=== PATIENT | male | born 1995 | race Caucasian/White ===

== ENCOUNTER 2017-06-17 16:42 | Emergency (ER) | payer MEDICAID ==
[2017-06-17 17:12] VITALS: BP 143/83
[2017-06-17] MEDS ORDERED: IBUPROFEN 800 MG TABLET PO ONE (17:59)
--- NOTE | 2017-06-17 18:00 | ER Document Report ---
HPI - HPI Patient complains to provider of: Cough, chest pain, sore throat Onset: Other - 4 days Onset/Duration: Persistent Quality of pain: Achy Pain Level: 5 Context: Patient presents complaining of occasionally productive cough for the past 4 days with chest pain that is present with coughing only. Patient complains of sore throat For the past 4 days as well. Patient denies any fever. Patient does complain of right lower back pain for the past month but denies any injury. Patient denies any urinary symptoms. Patient denies any radiculopathy or paresthesia. Associated Symptoms: Chest pain, Productive cough, Sore throat. denies: Earache , Fever, Nausea, Vomiting Exacerbated by: Coughing Relieved by: Remaining still Similar symptoms previously: No Recently seen / treated by doctor: No - ROS ROS below otherwise negative: Yes Systems Reviewed and Negative: Yes All other systems reviewed and negative - CONSTITUTIONAL Constitutional: DENIES: Fever, Chills - EENT EENT: REPORTS: Sore Throat - NEURO Neurology: DENIES: Headache - CARDIOVASCULAR Cardiovascular: REPORTS: Chest pain - RESPIRATORY Respiratory: REPORTS: Coughing. DENIES: Trouble Breathing - GASTROINTESTINAL Gastrointestinal: DENIES: Abdominal Pain, Nausea, Patient vomiting, Diarrhea - URINARY Urinary: DENIES: Dysuria, Urgency, Frequency - REPRODUCTIVE Reproductive: DENIES: : - MUSCULOSKELETAL Musculoskeletal: REPORTS: Back Pain. DENIES: Extremity pain - DERM Skin Color: Normal, [place] Skin Problems: None Past Medical History - General Information source: Patient - Social History Smoking Status: Current Every Day Smoker Frequency of alcohol use: None Drug Abuse: None Occupation: Recycling Family History: Arthritis, Hypertension, Malignancy Patient has suicidal ideation: No Patient has homicidal ideation: No Renal/ Medical History: Denies: Hx Peritoneal Dialysis Musculoskeltal Medical History: Reports Hx Musculoskeletal Deformity, Reports Hx Musculoskeletal Trauma Traumatic Medical History: Reports: Hx Pneumothorax, Hx Traumatic Brain Injury Past Surgical History: Reports: Hx Neurologic Surgery - Surgery after TBI - Immunizations Immunizations up to date: Yes Hx Diphtheria, Pertussis, Tetanus Vaccination: Yes Vertical Provider Document - CONSTITUTIONAL Agree With Documented VS: Yes Exam Limitations: No Limitations General Appearance: WD/WN, No Apparent Distress - INFECTION CONTROL TRAVEL OUTSIDE OF THE [place] IN LAST 30 DAYS: No - HEENT HEENT: Atraumatic, Normocephalic, Pharyngeal Tenderness, Pharyngeal Erythema. negative: Pharyngeal Exudate - NECK Neck: Normal Inspection, Supple. negative: Lymphadenopathy-Left, Lymphadenopathy-Right - RESPIRATORY Respiratory: Breath Sounds Normal, No Respiratory Distress, Chest Non-Tender. negative: Rales, Rhonchi, Wheezing O2 Sat by Pulse Oximetry: 99 - CARDIOVASCULAR Cardiovascular: Regular Rate, Regular Rhythm, No Murmur - BACK Back: CVA Tenderness-Right. negative: CVA Tenderness-Left - MUSCULOSKELETAL/EXTREMETIES Musculoskeletal/Extremeties: ERVIN LEWIS - NEURO Level of Consciousness: Awake, Alert, Appropriate Motor/Sensory: No Motor Deficit - DERM Integumentary: Warm, Dry Course - Re-evaluation Re-evalutation: 06/17/17 19:02 The patient has been informed that they may have pre-hypertension or hypertension based on a blood pressure reading in the emergency department. I recommend that patient call the primary care provider listed on their discharge instructions or a physician of their choice by this week to arrange follow-up for further evaluation of possible pre-hypertension or hypertension. The patient has atypical chest pain as the patient's chest pain is not suggestive of pulmonary embolus, cardiac ischemia, aortic dissection, or other serious etiology. Given the extremely low risk of these diagnoses for the test in evaluation for these possibilities does not appear to be indicated at this time. Patient has been instructed to return if the symptoms worsen or change in any way. - Vital Signs Vital signs: Temp Pulse Resp BP Pulse Ox 99.3 F 88 18 143/83 H 99 06/17/17 17:08 06/17/17 17:08 06/17/17 17:08 06/17/17 17:08 06/17/17 17:08 - Laboratory Laboratory results interpreted by me: 06/17/17 18:59 Labs- Entire Visit 06/17/17 06/17/17 18:18 18:18 Urine Color YELLOW Urine Appearance CLEAR Urine pH 5.0 Ur Specific [place] 1.026 Urine Protein NEGATIVE Urine Glucose (UA) NEGATIVE Urine Ketones NEGATIVE Urine Blood NEGATIVE Urine Nitrite NEGATIVE Urine Bilirubin NEGATIVE Urine Urobilinogen NEGATIVE Ur Leukocyte Esterase NEGATIVE Urine WBC (Auto) 2 Urine RBC (Auto) 1 Squamous Epi Cells Auto <1 Urine Mucus (Auto) RARE Urine Ascorbic Acid 20 H Group A Strep Rapid NEGATIVE - Diagnostic Test Radiology reviewed: Reports reviewed - EKG Interpretation by Me EKG shows normal: Sinus rhythm Rate: Normal Discharge - Discharge Clinical Impression: Elevated blood pressure reading, Sore throat Upper respiratory infection Qualifiers: URI type: unspecified URI Qualified Code(s): J06.9 - Acute upper respiratory infection, unspecified Low back pain Qualifiers: Chronicity: acute Back pain laterality: right Sciatica presence: without sciatica Qualified Code(s): M54.5 - Low back pain Condition: Stable Disposition: HOME, SELF-CARE Instructions: Low Back Pain ([facility]), Sore Throat ([facility]), Upper Respiratory Illness ([facility]) Additional Instructions: Return immediately for any new or worsening symptoms Followup with your primary care provider, call tomorrow to make a followup appointment Throat culture is pending, we will call if you need any different treatment Prescriptions: Cyclobenzaprine HCl [Flexeril 10 Mg Tablet] 10 mg PO TID #15 tablet Naproxen [Naprosyn 250 Nmg Tablet] 1 tab PO BID #14 tablet Forms: Elevated Blood Pressure, Return to Work Referrals: [facility] [Provider Group] - Follow up tomorrow
--- NOTE | 2017-06-17 18:32 | RADIOLOGY REPORT (SQ) ---
EXAM DESCRIPTION: CHEST PA/LAT COMPLETED DATE/TIME: 06/17/2017 6:18 pm REASON FOR STUDY: cough, cp COMPARISON: None. EXAM PARAMETERS: NUMBER OF VIEWS: two views TECHNIQUE: Digital Frontal and Lateral radiographic views of the chest acquired. RADIATION DOSE: NA LIMITATIONS: none FINDINGS: LUNGS AND PLEURA: No opacities, masses or pneumothorax. No pleural effusion. MEDIASTINUM AND HILAR STRUCTURES: No masses or contour abnormalities. HEART AND VASCULAR STRUCTURES: Heart normal size. No evidence for failure. BONES: No acute findings. HARDWARE: None in the chest. OTHER: No other significant finding. IMPRESSION: NO SIGNIFICANT RADIOGRAPHIC FINDING IN THE CHEST. TECHNICAL DOCUMENTATION: JOB ID: [id number] [employer]- All Rights Reserved
[2017-06-17 18:45] LABS: APPEARANCE,URINE CLEAR; BILIRUBIN,URINE NEGATIVE (NEGATIVE); GLUCOSE, URINE NEGATIVE (NEGATIVE); KETONES,URINE NEGATIVE (NEGATIVE); LEUKOCYTE ESTERASE,URINE NEGATIVE (NEGATIVE); NITRITE,URINE NEGATIVE (NEGATIVE); PROTEIN,URINE NEGATIVE (NEGATIVE); URINE SPECIFIC GRAVITY 1.026; UROBILINOGEN,URINE NEGATIVE mg/dL (<2.0)
--- NOTE | 2017-06-17 19:12 | EKG REPORT ---
SEVERITY:- OTHERWISE NORMAL ECG - SINUS RHYTHM BORDERLINE LEFT AXIS DEVIATION : Confirmed by: Edda Horn 17-Jun-2017 19:11:51
== END 2017-06-17 19:16 | disposition home or self-care (01) ==
LOC: ER 16:42
DX: J02.9 Acute pharyngitis, unspecified (principal); R07.9 Chest pain, unspecified; J06.9 Acute upper respiratory infection, unspecified; R03.0 Elevated blood-pressure reading, without diagnosis of hypertension; M54.5 Low back pain; F17.200 Nicotine dependence, unspecified, uncomplicated; Z87.820 Personal history of traumatic brain injury
CPT/HCPCS: 93005; 99283; 87070; 87880; 81001; 71020; 93010; J3490

== ENCOUNTER 2017-07-29 16:10 | Emergency (ER) | payer SELFPAY ==
--- NOTE | 2017-07-29 18:39 | ER Document Report ---
ED Medical Screen (RME) - General Chief Complaint: Abdominal Pain Stated Complaint: ABDOMINAL PAIN Time Seen by Provider: 07/29/17 18:35 Mode of Arrival: Ambulatory Information source: Patient Notes: pt presents with c/o sharp pain with cough/sit up for the past 5 days. Jono f/v /d. Increased BM, normal formed, just increased. Denies trauma. Denies PMH. Born with hernias. No obvious bulge. declines tylenol. History of TBI. TRAVEL OUTSIDE OF THE [place] IN LAST 30 DAYS: No - Related Data Allergies/Adverse Reactions: amoxicillin [Amoxicillin] Allergy (Verified 07/29/17 16:11) Penicillins Allergy (Verified 07/29/17 16:11) Past Medical History Renal/ Medical History: Denies: Hx Peritoneal Dialysis Musculoskeltal Medical History: Reports Hx Musculoskeletal Deformity, Reports Hx Musculoskeletal Trauma Traumatic Medical History: Reports: Hx Pneumothorax, Hx Traumatic Brain Injury Past Surgical History: Reports: Hx Neurologic Surgery - Surgery after TBI - Immunizations Immunizations up to date: Yes Hx Diphtheria, Pertussis, Tetanus Vaccination: Yes Physical Exam - Vital signs Vitals: Temp Pulse Resp BP Pulse Ox 99.6 F 93 17 125/76 100 07/29/17 16:34 07/29/17 16:34 07/29/17 16:34 07/29/17 16:34 07/29/17 16:34 Course - Vital Signs Vital signs: Temp Pulse Resp BP Pulse Ox 99.6 F 93 17 125/76 100 07/29/17 16:34 07/29/17 16:34 07/29/17 16:34 07/29/17 16:34 07/29/17 16:34
[2017-07-29 19:12] LABS: ABSOLUTE BASOPHILS # (AUTO) 0.1 10^3/uL (0.0-0.2); ABSOLUTE EOSINOPHILS # (AUTO) 0.4 10^3/uL (0.0-0.6); ABSOLUTE LYMPHOCYTES (AUTO) 3.4 10^3/uL (0.5-4.7); ABSOLUTE NEUT (AUTO) 8.2 10^3/uL (1.7-8.2); BASOPHILS % (AUTO) 0.6 % (0-2); EOSINOPHILS % (AUTO) 2.8 % (0-6); HEMATOCRIT 43.7 % (37.9-51.0); HEMOGLOBIN 15.3 g/dL (13.5-17.0); HGB HCT DIFFERENCE 2.2; LYMPHOCYTES % (AUTO) 25.9 % (13-45); MEAN CORPUSCULAR HEMOGLOBIN 29.3 pg (27.0-33.4); MEAN CORPUSCULAR VOLUME 84 fl (80-97); RED BLOOD COUNT 5.21 10^6/uL (4.35-5.55); RED CELL DISTRIBUTION WIDTH 13.1 % (11.5-14.0); SEGMENTED NEUTROPHILS % (AUTO) 62.7 % (42-78)
[2017-07-29 19:35] LABS: ALANINE AMINOTRANSFERASE 40 U/L (21-72); ALBUMIN 4.8 g/dL (3.5-5.0); ALKALINE PHOSPHATASE 74 U/L (38-126); ANION GAP 13 (5-19); ASPARTATE AMINO TRANSFERASE 22 U/L (17-59); BILIRUBIN,DIRECT 0.3 mg/dL (0.0-0.4); BILIRUBIN,TOTAL 0.5 mg/dL (0.2-1.3); BLOOD UREA NITROGEN 9 mg/dL (7-20); CALCIUM 9.8 mg/dL (8.4-10.2); CARBON DIOXIDE 30 mmol/L (22-30); CHLORIDE 98 mmol/L (98-107); GLUCOSE 77 mg/dL (75-110); POTASSIUM 4.1 mmol/L (3.6-5.0); SODIUM 140.5 mmol/L (137-145); TOTAL PROTEIN 7.5 g/dL (6.3-8.2)
--- NOTE | 2017-07-29 21:45 | RADIOLOGY REPORT (SQ) ---
EXAM DESCRIPTION: U/S ABDOMEN COMPLETE W/O DOP COMPLETED DATE/TIME: 07/29/2017 9:26 pm REASON FOR STUDY: abd pain, worries about hernia on LLQ COMPARISON: None. TECHNIQUE: Dynamic and static grayscale images acquired of the abdomen and recorded on PACS. Noelleo meaghan selected color Doppler and spectral images recorded. LIMITATIONS: Study is limited due to overlying bowel gas. FINDINGS: PANCREAS: Pancreas could not be visualized due to overlying bowel gas. LIVER: No masses. Echotexture normal. LIVER VASCULATURE: Normal directional flow of the main portal vein and hepatic veins. GALLBLADDER: No stones. Normal wall thickness. No pericholecystic fluid. ULTRASOUND-DETECTED TAYLOR'S SIGN: Negative. INTRAHEPATIC DUCTS AND COMMON DUCT: CBD and intrahepatic ducts normal caliber. No filling defects. INFERIOR VENA CAVA: Normal flow. AORTA: The abdominal aorta was incompletely visualized due to overlying bowel gas. RIGHT KIDNEY: 11.5 cm in length. Normal echogenicity. No solid or suspicious masses. No hydron ephrosis. No calcifications. LEFT KIDNEY: 12.3 cm in length. Normal echogenicity. No solid or suspicious masses. No hydrone phrosis. No calcifications. SPLEEN: Normal size. No solid masses. PERITONEAL AND PLEURAL SPACES: No ascites or effusions. OTHER: No other significant finding. IMPRESSION: Somewhat limited study as noted above. No significant intra-abdominal abnormalities jill kam identified. TECHNICAL DOCUMENTATION: JOB ID: [id number] [employer]- All Rights Reserved
--- NOTE | 2017-07-29 23:33 | ER Document Report ---
ED General - General Chief Complaint: Abdominal Pain Stated Complaint: ABDOMINAL PAIN Time Seen by Provider: 07/29/17 18:35 Mode of Arrival: Ambulatory Notes: Patient is a 21-year-old male presents with complaint of abdominal pain and left lower quadrant. Patient says that he has history of hernias persistent hernias were when he was child. Unsure if ever had surgery for this. She denies any vomiting or diarrhea. No fevers. Says pain is worse when he sits up or when he coughs. No other complaints at this time. Patient denies testicular pain. TRAVEL OUTSIDE OF THE [place] IN LAST 30 DAYS: No - Related Data Allergies/Adverse Reactions: amoxicillin [Amoxicillin] Allergy (Verified 07/29/17 18:40) Penicillins Allergy (Verified 07/29/17 18:40) Home Medications: Current Home Medications No Home Medications 07/29/17 [History] Past Medical History - General Information source: Patient - Social History Smoking Status: Never Smoker Chew tobacco use (# tins/day): No Frequency of alcohol use: None Drug Abuse: None Family History: Arthritis, Hypertension, Malignancy Patient has suicidal ideation: No Patient has homicidal ideation: No Renal/ Medical History: Denies: Hx Peritoneal Dialysis Musculoskeltal Medical History: Reports Hx Musculoskeletal Deformity, Reports Hx Musculoskeletal Trauma Traumatic Medical History: Reports: Hx Pneumothorax, Hx Traumatic Brain Injury Past Surgical History: Reports: Hx Neurologic Surgery - Surgery after TBI - Immunizations Immunizations up to date: Yes Hx Diphtheria, Pertussis, Tetanus Vaccination: Yes Review of Systems - Review of Systems Notes: My Normal Review Basic REVIEW OF SYSTEMS: CONSTITUTIONAL : Denies fever, chills, or sweats. Denies recent illness. EENT: Denies eye, ear, throat, or mouth pain or symptoms. Denies nasal or sinus congestion. RESPIRATORY: Denies cough, cold, or chest congestion. Denies shortness of breath, difficulty breathing, or wheezing. GASTROINTESTINAL: Left lower quadrant abdominal pain. Denies nausea, vomiting, or diarrhea. MUSCULOSKELETAL: Denies neck or back pain or joint pain or swelling. SKIN: Denies rash or skin lesions. NEUROLOGICAL: Denies altered mental status or loss of consciousness. Denies headache. Denies weakness or paralysis or loss of use of either side. Denies problems with gait or speech. Denies sensory or motor loss. ALL OTHER SYSTEMS REVIEWED AND NEGATIVE. Physical Exam - Vital signs Vitals: Temp Pulse Resp BP Pulse Ox 99.6 F 93 17 125/76 100 07/29/17 16:34 07/29/17 16:34 07/29/17 16:34 07/29/17 16:34 07/29/17 16:34 - Notes Notes: General Appearance: Well nourished, alert, cooperative, no acute distress, no obvious discomfort. Appearing. Vitals: reviewed, See vital signs table. Head: no swelling or tenderness to the head Eyes: PERRL, EOMI, Conjuctiva clear Mouth: No decreasd moisture Lungs: No wheezing, No rales, No rhonci, No accessory muscle use, good air exchange bilaterally. Heart: Normal rate, Regular rythm, No murmur, no rub Abdomen: Normal BS, soft, No rigidity, left lower quadrant abdominal tenderness to palpation., No guarding, no rebound Genital: No redness or swelling to the genitalia. No pain to palpation of genitalia. Extremities: strength 5/5 in all extremities, good pulses in all extremities, no swelling or tenderness in the extremities, no edema. Skin: warm, dry, appropriate color, no rash Neuro: speech clear, oriented x 3, normal affect, responds appropriately to questions. Course - Re-evaluation Re-evalutation: 07/29/17 23:47 Patient does not want away longer. CT scan results still pending. I informed him I will call him with the CT scan results. Patient looks well. I looked over the CT scan myself and I do not see an obvious hernia or signs of incarcerated hernia and his exam is benign. Patient again will not waiting longer therefore I done his phone number, . I will call him with his results. 07/30/17 06:40 CBC was negative. Is well-appearing. Patient did leave. I have tried to attempt to call him but he has not picked up the phone. I will try again to call him to make more that his CT scan was negative. When he left I informed him to return to ER immediately if he has worsening pain or feels unwell. Patient agrees with plan will be discharged home. - Vital Signs Vital signs: Temp Pulse Resp BP Pulse Ox 99.6 F 74 20 136/72 H 98 07/29/17 16:34 07/29/17 23:54 07/29/17 23:54 07/29/17 23:54 07/29/17 23:54 - Laboratory Result Diagrams: 07/29/17 18:57 07/29/17 18:57 Laboratory results interpreted by me: 07/29/17 18:57 WBC 13.0 H Discharge - Discharge Clinical Impression: Abdominal pain Qualifiers: Abdominal location: left lower quadrant Qualified Code(s): R10.32 - Left lower quadrant pain Condition: Good Disposition: HOME, SELF-CARE Additional Instructions: ABDOMINAL PAIN: There are many causes of abdominal pain. Pain can mean a serious problem requiring surgery (such as appendicitis). It can also be an innocent problem that goes away on its own (such as a viral infection). Often, time must pass to determine the cause of pain. The physician does not feel that hospitalization is necessary, at present. Things may change within the next 24 hours. Call the doctor or come back for re- examination if any problems occur, such as: (1) Pain that becomes more severe, steady, or becomes concentrated in one specific area. Also, pain that is more severe with movement or coughing. (2) Vomiting that persists or becomes more frequent. (3) Blood in the vomitus, urine, or bowel movements. Blood in the stool may have a tarry or black appearance. (4) Shaking chills or fever greater than 100 degrees F. (5) The abdomen becomes more distended or swollen. (6) Bowel movements cease. (7) Failure to improve as expected. NORMAL EXAM AND WORKUP: At this time, your examination and workup show no significant abnormality. No significant abnormal physical findings are noted. All laboratory and imaging ( CT scans, ultrasound) studies that were ordered show no significant abnormality. Although your examination and all studies that were ordered showed no significant abnormal finding, there are no examinations and no studies that are 100% accurate. There is always the possibility that some abnormality could exist and not be detected with physical examination or within the limits and capabilities of laboratory and other studies. You should return or follow up as you were instructed on your visit today for further evaluation if your symptoms do not resolve. FOLLOW-UP CARE: If you have been referred to a physician for follow-up care, call the physician s office for an appointment as you were instructed or within the next two days. If you experience worsening or a significant change in your symptoms, notify the physician immediately or return to the Emergency Department at any time for re-evaluation. FOLLOW-UP CARE: I suspect that your pain is related to a strained abdominal wall muscle. No hernia was seen on your CT scan. Please avoid heavy lifting. Please follow up with a doctor for reevaluation if you are still having pain after 48 hours. Please return to the ER immediately if you have worsening pain, fevers, vomiting , blood in your stool, or feel unwell. Forms: Return to Work
[2017-07-29 23:54] VITALS: BP 136/72
--- NOTE | 2017-07-30 | RADIOLOGY REPORT (SQ) ---
exam: CT abdomen pelvis without contrast. CLINICAL HISTORY: Left lower quadrant abdominal pain. COMPARISON: CR, abdomen same day. TECHNIQUE: No contrast, coronal and sagittal reformat, 513 DLP dose reduction. Limitations: None. FINDINGS: No acute findings. No significant free fluid and no free air. No obstruction. Normal appendix. Inferior chest, unenhanced intra-abdominal and intrapelvic structures, and musculoskeletal skeleton appear otherwise unremarkable. IMPRESSION: No acute findings.
== END 2017-07-29 23:54 | disposition home or self-care (01) ==
LOC: ER 16:10
DX: R10.32 Left lower quadrant pain (principal)
CPT/HCPCS: 36415; 74176; 76700; 80053; 85025; 99284

== ENCOUNTER 2017-08-23 19:51 | Emergency (ER) | payer SELFPAY ==
[2017-08-23 20:01] VITALS: BP 130/77
--- NOTE | 2017-08-23 21:06 | RADIOLOGY REPORT (SQ) ---
EXAM DESCRIPTION: CHEST PA/LAT COMPLETED DATE/TIME: 08/23/2017 8:50 pm REASON FOR STUDY: spitting up blood COMPARISON: 06/17/2017 EXAM PARAMETERS: NUMBER OF VIEWS: two views TECHNIQUE: Digital Frontal and Lateral radiographic views of the chest acquired. RADIATION DOSE: NA LIMITATIONS: none FINDINGS: LUNGS AND PLEURA: No acute opacities, masses or pneumothorax. No pleural effusion. MEDIASTINUM AND HILAR STRUCTURES: No masses or contour abnormalities. HEART AND VASCULAR STRUCTURES: Heart normal size. No evidence for failure. BONES: No acute findings. HARDWARE: None in the chest. OTHER: No other significant finding. IMPRESSION: NO SIGNIFICANT RADIOGRAPHIC FINDING IN THE CHEST. TECHNICAL DOCUMENTATION: JOB ID: [id number] [employer]- All Rights Reserved
--- NOTE | 2017-08-23 22:04 | ER Document Report ---
ED Respiratory Problem - General Chief Complaint: Productive Cough Stated Complaint: VOMITING/THROAT PAIN Time Seen by Provider: 08/23/17 20:30 Information source: Patient Notes: Patient is a 22-year-old white male comes emergency room complaining of spitting up blood this morning. Patient states that he woke up this morning went to brush his teeth when he did he started coughing and he spit some bright red blood into the sink. He states he gargles with some salt water and spit it up again. He stated he looked in the mirror and saw his tonsils and his tonsils were bright red and looked like the right side tonsil was cut in the middle. Stated I do not know how this happened. Patient is here to get checked out. Also complains of aches and pains and just general eyes malaise. TRAVEL OUTSIDE OF THE [place] IN LAST 30 DAYS: No - HPI Patient complains to provider of: Cough Onset: This morning Duration: Worse/persistent Quality of pain: Achy Severity: Moderate Pain Level: 2 Context: Smoker Short of Breath: Mild Cough: Productive Sputum amount: Moderate Sputum color: Red (blood) Sputum consistency: Thick Associated symptoms: Chills, Congestion, Cough, PND, Runny nose, Sinus pain/ pressure Similar symptoms previously: No Recently seen / treated by doctor: No - Related Data Allergies/Adverse Reactions: amoxicillin [Amoxicillin] Allergy (Verified 07/29/17 18:40) Penicillins Allergy (Verified 07/29/17 18:40) Past Medical History - General Information source: Patient - Social History Smoking Status: Current Every Day Smoker Cigarette use (# per day): Yes - 1 pack a day Frequency of alcohol use: None Drug Abuse: None Family History: Arthritis, Hypertension, Malignancy Patient has suicidal ideation: No Patient has homicidal ideation: No Renal/ Medical History: Denies: Hx Peritoneal Dialysis Musculoskeltal Medical History: Reports Hx Musculoskeletal Deformity, Reports Hx Musculoskeletal Trauma Traumatic Medical History: Reports: Hx Pneumothorax, Hx Traumatic Brain Injury Past Surgical History: Reports: Hx Neurologic Surgery - Surgery after TBI - Immunizations Immunizations up to date: Yes Hx Diphtheria, Pertussis, Tetanus Vaccination: Yes Review of Systems - Review of Systems Constitutional: See HPI, Fever, Weakness EENT: Ear pain, Nose congestion, Nose discharge, Sinus pressure, Sinus discharge , Throat pain, Difficulty swallowing Cardiovascular: Heart racing Respiratory: See HPI, Cough Gastrointestinal: No symptoms reported Genitourinary: No symptoms reported Male Genitourinary: No symptoms reported Musculoskeletal: Other - Muscle aches and pains Skin: No symptoms reported Hematologic/Lymphatic: No symptoms reported Neurological/Psychological: No symptoms reported -: Yes All other systems reviewed and negative Physical Exam - Vital signs Vitals: Temp Pulse Resp BP Pulse Ox 98.0 F 112 H 18 130/77 H 98 08/23/17 20:00 08/23/17 20:00 08/23/17 20:00 08/23/17 20:00 08/23/17 20:00 Interpretation: Hypertensive, Tachycardic - General General appearance: Other - Slightly uncomfortable appearing - HEENT Head: Normocephalic, Atraumatic Eyes: Normal Ears: Normal External canal: Normal Tympanic membrane: Bulging, Other - Mild air-fluid levels bilaterally. No: Normal, Hemotympanum, Injected, Loss of landmarks, Perforation, Purulent effusion, Retracted, Serous effusion Sinus: Maxillary, Tenderness Nasal: Purulent discharge. No: Normal, Bloody discharge, [place]wo deformity, Ecchymosis, Epistaxis, Septal hematoma, Swelling, Clear rhinorrhea, Other Mouth/Lips: Normal Mucous membranes: Normal, Moist Pharynx: Erythema, Post nasal drainage. No: Normal, Blood in hypopharynx, Exudate, Peritonsillar abscess, Retropharyngeal abscess, Tonsillar hypertrophy, Uvular edema, Potential airway comprom., Other Neck: Anterior cervical chain, Lymphadenopathy. No: Normal, Posterior cervical chain, Brudzinski, Carotid bruit, Kernig's, Meningismus, Neck mass, Shotty nodes , Subcutaneous emphysema, Supple, Thyroid nodule, Thyromegally, Other - Respiratory Respiratory status: No respiratory distress Chest status: Nontender Breath sounds: Decreased air movement, Wheezing, Other - Patient displays a very faint end expiratory wheeze.. No: Normal, Nonproductive cough, Productive cough, Rales, Rhonchi, Stridor - Cardiovascular Rhythm: Tachycardia Murmur: No - Neurological Neuro grossly intact: Yes Cognition: Normal Orientation: AAOx4 Nurys Coma Scale Eye Opening: Spontaneous Nurys Coma Scale Verbal: Oriented [place] Coma Scale Motor: Obeys Commands Nurys Coma Scale Total: 15 Speech: Normal - Skin Skin Temperature: Warm Skin Moisture: Dry Skin Color: Normal, [place] Course - Vital Signs Vital signs: Temp Pulse Resp BP Pulse Ox 98.0 F 112 H 18 130/77 H 98 08/23/17 20:00 08/23/17 20:00 08/23/17 20:00 08/23/17 20:00 08/23/17 20:00 - Transfer of Care Notes: 08/24/17 01:36 Patient workup was basically normal there was no pharyngitis and his chest x- ray was okay. I informed patient #1 because of hemoptysis in the on person is bronchitis also a hacking cough which he is informed he has had can also rupture a vessel of the esophagus and can bleed with that as well. When I treat him for the asthmatic bronchitis and a pharyngitis. I explained to him about the medications and if he should have any shortness of breath or fever or he continues to produce a reddish sputum to return to ER for recheck. Discharge - Discharge Clinical Impression: Bronchitis Pharyngitis Qualifiers: Pharyngitis/tonsillitis etiology: other specified organisms Qualified Code(s): J02.8 - Acute pharyngitis due to other specified organisms Condition: Good Disposition: HOME, SELF-CARE Instructions: Bronchitis ([facility]), Sore Throat ([facility]) Additional Instructions: Home rest. Medications prescribed. As we discussed continue with warm salt water gargles. Tylenol alternating with Motrin for aches pains fever. decrease smoking as much as possible. Should you have any concerns or problems return to ER for recheck. As of informed you the #1 cause of coughing of blood is bronchitis Prescriptions: Azithromycin [Zithromax 250 mg Tablet] 250 mg PO ASDIR PRN #6 tablet PRN Reason: Methylprednisolone [Medrol Dosepack (4 mg/Tab) 21 Tab/Dosepak] 4 mg PO ASDIR PRN #21 tab.ds.pk PRN Reason: Pseudoephedrine HCl [Sudafed 12-Hour] 120 mg PO BID #20 tablet.er
== END 2017-08-23 22:00 | disposition home or self-care (01) ==
LOC: ER 19:51
DX: J40 Bronchitis, not specified as acute or chronic (principal); J02.9 Acute pharyngitis, unspecified; R04.2 Hemoptysis; R53.81 Other malaise; R09.82 Postnasal drip; R06.2 Wheezing; J34.89 Other specified disorders of nose and nasal sinuses; R09.81 Nasal congestion; R50.9 Fever, unspecified; R53.1 Weakness; R13.10 Dysphagia, unspecified; M79.1 Myalgia; F17.210 Nicotine dependence, cigarettes, uncomplicated; Z88.0 Allergy status to penicillin
CPT/HCPCS: 71020; 87070; 87077; 87880; 99283

== ENCOUNTER 2017-08-24 19:33 | Emergency (ER) | payer SELFPAY ==
[2017-08-24] MEDS ORDERED: KETOROLAC TROMETHAMINE INJ/PF 30 MG/1 ML SDV IV ONE (23:23)
[2017-08-24] MEDS ORDERED: PROCHLORPERAZINE EDISYLATE INJ 10 MG/2 ML VIAL IV ONE (23:23)
[2017-08-24] MEDS ORDERED: DIPHENHYDRAMINE HCL 50 MG/ML VIAL IV ONE (23:23)
[2017-08-24] MEDS ORDERED: IBUPROFEN 600 MG TABLET PO ONE (23:32)
[2017-08-24] MEDS ORDERED: ACETAMINOPHEN 325 MG TABLET PO ONE (23:32)
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
[2017-08-25 03:27] VITALS: BP 126/70
== END 2017-08-25 00:11 | disposition home or self-care (01) ==
LOC: ER 19:33
DX: R51 Headache (principal); R00.0 Tachycardia, unspecified; Z87.820 Personal history of traumatic brain injury; Z87.81 Personal history of (healed) traumatic fracture; Z98.890 Other specified postprocedural states; Z88.0 Allergy status to penicillin
CPT/HCPCS: 99283

== ENCOUNTER 2017-11-22 21:06 | Emergency (ER) | payer SELFPAY ==
[2017-11-22 21:28] VITALS: BP 116/73
[2017-11-22] MEDS ORDERED: LIDOCAINE 2% VISCOUS SOLN 20 ML UDCUP PO ONE (22:33)
--- NOTE | 2017-11-22 22:44 | ER Document Report ---
HPI - HPI Pain Level: 5 Notes: Patient is a 22-year-old male with no significant past medical history presents to the ED complaining of dental pain to #153-4 days. Patient states that his crown fell off a few years ago, and has had intermittent pain since then. Patient has yet to schedule an appointment with a dentist. Patient states that he is waiting for his tax return to schedule an appointment. Patient has not noticed any obvious abscess or discharge. He is eating and drinking without difficulties. Patient does have an allergy to penicillins which made him swell. Patient states that he usually gets clindamycin for this. No other concerns or complaints at this time. Denies any IV drug use. Denies any headache, fever, head injury, neck pain, URI, sore throat, chest pain, palpitations, syncope, cough, shortness of breath, wheeze, dyspnea, abdominal pain, nausea/vomiting/diarrhea, urinary retention, dysuria, hematuria, or rash. - ROS Systems Reviewed and Negative: Yes All other systems reviewed and negative - REPRODUCTIVE Reproductive: DENIES: : Past Medical History - Social History Smoking Status: Current Every Day Smoker Family History: Arthritis, Hypertension, Malignancy Renal/ Medical History: Denies: Hx Peritoneal Dialysis Musculoskeltal Medical History: Reports Hx Musculoskeletal Deformity, Reports Hx Musculoskeletal Trauma Traumatic Medical History: Reports: Hx Pneumothorax, Hx Traumatic Brain Injury Past Surgical History: Reports: Hx Neurologic Surgery - Surgery after TBI - Immunizations Immunizations up to date: Yes Hx Diphtheria, Pertussis, Tetanus Vaccination: Yes Vertical Provider Document - CONSTITUTIONAL Agree With Documented VS: Yes Notes: PHYSICAL EXAMINATION: GENERAL: Well-appearing, well-nourished and in no acute distress. HEAD: Atraumatic, normocephalic. EYES: Pupils equal round and reactive to light, extraocular movements intact, sclera anicteric, conjunctiva are normal. ENT: EAC clear b/l. TM's intact b/l without erythema, fluid, or perforation. Nares patent and without discharge. oropharynx clear without exudates. No tonsilar hypertrophy or erythema. Moist mucous membranes. No sinus tenderness. Uvula midline. No palatine shift. No tongue protrusion. No respiratory compromise. Mouth: Poor dentition. + mild decay and mild gingivitis. No obvious abscess or discharge noted. No facial swelling. + tenderness to tooth #15. NECK: Normal range of motion, supple without lymphadenopathy. No rigidity/ meningismus. LUNGS: Breath sounds clear to auscultation bilaterally and equal. No wheezes rales or rhonchi. HEART: Regular rate and rhythm without murmurs, rubs, gallops. NEUROLOGICAL: Cranial nerves grossly intact. Normal speech, normal gait. Normal sensory, motor exams PSYCH: Normal mood, normal affect. SKIN: Warm, Dry, normal turgor, no rashes or lesions noted. - INFECTION CONTROL TRAVEL OUTSIDE OF THE [place] IN LAST 30 DAYS: No Course - Re-evaluation Re-evalutation: 11/22/17 22:43 Patient is an afebrile, well-hydrated, 22-year-old male who presents to the ED with dental pain and #15, suspect nerve root etiology versus infection. Vitals are acceptable. PE is otherwise unremarkable. No labs or imaging warranted at this time based on H&P. I will be sending him home with a prescription for clindamycin and viscous lidocaine. Low suspicion for any meningitis, sepsis, peritonsillar/pharyngeal abscess, respiratory compromise, Rebel's, temporal arteritis, or other emergent systemic condition at this time. Patient is aware this condition can change from initial presentation and he needs to monitor symptoms closely. Conservative measures otherwise for symptoms. Call to schedule an appointment with a dentist for further evaluation and management. Recheck with your PCM this week as well. Return to the ED with any worsening/ concerning symptoms otherwise as reviewed in discharge. Patient is in agreement. - Vital Signs Vital signs: Temp Pulse Resp BP Pulse Ox 97.6 F 76 18 116/73 97 11/22/17 21:27 11/22/17 21:27 11/22/17 21:27 11/22/17 21:27 11/22/17 21:27 Discharge - Discharge Clinical Impression: Toothache Condition: Stable Disposition: HOME, SELF-CARE Instructions: Clindamycin ([facility]) Additional Instructions: [place] and floss twice daily Maintain fluid intake Take antibiotics as directed Mouthwash, salt water gargles, peroxide rinse as needed Tylenol/ibuprofen as needed Recheck with PCM this week Call today/tomorrow and schedule an appointment with your dentist for further evaluation Return to the ED with any worsening symptoms and/or development of fever, headache, facial swelling, swelling of lips/tongue/throat, trouble swallowing, drooling, hoarseness, neck pain/stiffness, chest pain, palpitations, syncope, shortness of breath, trouble breathing, abdominal pain, n/v/d, numbness/tingling , or other worsening symptoms that are concerning to you. Prescriptions: Clindamycin HCl [Cleocin 300 mg Capsule] 300 mg PO TID #30 capsule Forms: Smoking Cessation Education Referrals: [facility] [Provider Group] - Follow up in 3-5 days
== END 2017-11-22 22:49 | disposition home or self-care (01) ==
LOC: ER 21:06
DX: K08.89 Other specified disorders of teeth and supporting structures (principal); F17.200 Nicotine dependence, unspecified, uncomplicated
CPT/HCPCS: 99282; J3490